=== PATIENT | male | born 1950 | race American Indian/Alaskan Native ===

== ENCOUNTER 2017-01-11 09:27 | Emergency (ER) | payer MEDICARE, OTHER ==
[2017-01-11] MEDS ORDERED: TYLENOL PO ONE (09:45)
[2017-01-11 12:11] LABS: Bacteria,Urine 1+ /HPF (Negative); Bilirubin,Urine NEG (Negative); Blood,Urine NEG (Negative); Ketones,Urine NEG (Negative); Leukocyte Esterase,Urine NEG (Negative); Mucus,Urine FEW /HPF; Nitrite,Urine NEG (Negative); Protein,Urine <15 mg/dL mg/dL (Negative); Urobilinogen,Urine < 2.0 mg/dL (<2.0)
[2017-01-11 12:14] LABS: Basophils % (Auto) 0.9 % (0.0-1.8); Eosinophils % (Auto) 2.9 % (0.0-4.3); Hematocrit 36.5 % (35.5-45.6); Hemoglobin 11.7 gm/dl (11.8-15.2); Mean Corpuscular HGB Conc 32 % (32-34); Mean Corpuscular Volume 71 fl (84-94); Platelet Count 288 K/mm3 (140-440); Red Blood Count 5.16 M/mm3 (3.65-5.03); Red Cell Distribution Width 16.3 % (13.2-15.2); White Blood Count 6.2 K/mm3 (4.5-11.0)
[2017-01-11 12:21] LABS: Mean Corpuscular Hemoglobin 23 pg (28-32)
[2017-01-11 12:49] LABS: Creatine Kinase MB 1.7 ng/mL (0.0-4.0)
[2017-01-11 12:50] LABS: Alanine Aminotransferase 8 units/L (7-56); Albumin/Globulin Ratio 1.1 %; Alkaline Phosphatase 45 units/L (35-129); Anion Gap 17 mmol/L; BUN/Creatinine Ratio 22.85; Blood Urea Nitrogen 16 mg/dL (9-20); Calcium 9.1 mg/dL (8.4-10.2); Carbon Dioxide 28 mmol/L (22-30); Chloride 99.9 mmol/L (98-107); Creatine Kinase 124 units/L (55-170); Glucose 97 mg/dL (75-100); Potassium 3.8 mmol/L (3.6-5.0); Sodium 141 mmol/L (137-145); Total Protein 7.8 g/dL (6.3-8.2)
[2017-01-11 13:01] LABS: Bilirubin,Direct < 0.2 mg/dL (0-0.2)
--- NOTE | 2017-01-11 13:11 | Emergency Department Report ---
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 He stated by 7th day (Thursday) he was feeling tired and weak. Thursday and Thursday, he states he stayed home from work. He desires a work excuse covering those days. He states that he can go back to work on Thursday. The patient sees Dr. Napoles for chronic care. He states he's been told that he is anemic by his primary care physician and has a colonoscopy scheduled for January 25. He is currently taking iron replacement. He does not report any recent signs of GI bleeding, abdominal pain or any vomiting. He denies fever or chills. -: days(s) Severity scale (0 -10): 0 Treatments Prior to Arrival: none, other (iron per PMD) - Related Data Allergies Allergy/AdvReac Type Severity Reaction Status Date / Time No Known Allergies Allergy Unverified 01/11/17 09:45 ED Review of Systems ROS: Stated complaint: TIRED/WEAK Other details as noted in HPI Constitutional: weakness. denies: chills, fever Eyes: denies: eye pain, eye discharge, vision change ENT: denies: ear pain, throat pain Respiratory: denies: cough, shortness of breath, wheezing Cardiovascular: denies: chest pain, palpitations Endocrine: no symptoms reported Gastrointestinal: denies: abdominal pain, nausea, diarrhea Genitourinary: denies: urgency, dysuria Musculoskeletal: denies: back pain, joint swelling, arthralgia Skin: denies: rash, lesions Neurological: denies: headache, weakness, paresthesias Psychiatric: denies: anxiety, depression Hematological/Lymphatic: denies: easy bleeding, easy bruising ED Past Medical Hx - Past Medical History Hx Hypertension: Yes - Surgical History Past Surgical History?: No - Social History Smoking Status: Never Smoker Substance Use Type: None ED Physical Exam - General Limitations: No Limitations General appearance: alert, in no apparent distress, obese - Head Head exam: Present: atraumatic, normocephalic - Eye Eye exam: Present: normal appearance, PERRL, EOMI. Absent: scleral icterus - ENT ENT exam: Present: normal exam, mucous membranes moist - Neck Neck exam: Present: normal inspection. Absent: tenderness, meningismus - Respiratory Respiratory exam: Present: normal lung sounds bilaterally. Absent: respiratory distress - Cardiovascular Cardiovascular Exam: Present: regular rate, normal rhythm. Absent: systolic murmur, diastolic murmur, rubs, gallop - GI/Abdominal GI/Abdominal exam: Present: soft, normal bowel sounds. Absent: distended, tenderness, guarding, rebound, rigid - Rectal Rectal exam: Present: deferred - Extremities Exam Extremities exam: Present: full ROM, other (bilateral pretibial edema). Absent : tenderness, calf tenderness - Back Exam Back exam: Present: normal inspection - Neurological Exam Neurological exam: Present: alert, oriented X3, CN II-XII intact, normal gait. Absent: motor sensory deficit - Psychiatric Psychiatric exam: Present: normal affect, normal mood - Skin Skin exam: Present: warm, dry, intact, normal color. Absent: rash ED Course Vital Signs 01/11/17 01/11/17 09:40 09:49 Temperature 97.9 F Pulse Rate 64 Respiratory 16 Rate Blood Pressure 155/95 [Right] O2 Sat by Pulse 100 Oximetry ED Medical Decision Making - Lab Data Result diagrams: 01/11/17 12:07 01/11/17 12:07 Laboratory Results - last 24 hr 01/11/17 01/11/17 01/11/17 12:07 12:07 Unknown WBC 6.2 RBC 5.16 H Hgb 11.7 L Hct 36.5 MCV 71 L MCH 23 L MCHC 32 RDW 16.3 H Plt Count 288 Lymph % (Auto) 36.6 H Labette % (Auto) 10.6 H Eos % (Auto) 2.9 Baso % (Auto) 0.9 Lymph # 2.3 Labette # 0.7 Eos # 0.2 Baso # 0.1 Seg Neutrophils % 49.0 Seg Neutrophils # 3.1 Sodium 141 Potassium 3.8 Chloride 99.9 Carbon Dioxide 28 Anion Gap 17 BUN 16 Creatinine 0.7 L Estimated GFR > 60 BUN/Creatinine Ratio 22.85 Glucose 97 Calcium 9.1 Total Bilirubin 0.50 Direct Bilirubin < 0.2 AST 15 ALT 8 Alkaline Phosphatase 45 Total Creatine Kinase 124 CK-MB (CK-2) 1.7 CK-MB (CK-2) Rel Index 1.3 Total Protein 7.8 Albumin 4.0 Albumin/Globulin Ratio 1.1 Urine Color Yellow Urine Turbidity Clear Urine pH 5.0 Ur Specific [place] 1.019 Urine Protein <15 mg/dl Urine Glucose (UA) Neg Urine Ketones Neg Urine Blood Neg Urine Nitrite Neg Urine Bilirubin Neg Urine Urobilinogen < 2.0 Ur Leukocyte Esterase Neg Urine WBC (Auto) 1.0 Urine RBC (Auto) 1.0 Urine Bacteria (Auto) 1+ Urine Mucus Few Critical care attestation.: If time is entered above; I have spent that time in minutes in the direct care of this critically ill patient, excluding procedure time. ED Disposition Clinical Impression: Generalized weakness Anemia Qualifiers: Anemia type: unspecified type Qualified Code(s): D64.9 - Anemia, unspecified Hypertension Qualifiers: Hypertension type: essential hypertension Qualified Code(s): I10 - Essential ( primary) hypertension Disposition: DC- TO HOME OR SELFCARE Is pt being admited?: No Does the pt Need Aspirin: No Condition: Stable Instructions: Anemia (ED), Weakness (ED), Hypertension (ED) Additional Instructions: Further care and evaluation by her primary care physician. Return any acute change or problem. Referrals: PRIMARY CARE, [Primary Care Provider] - 3-5 Days DYLAN NAPOLES MD [Staff Physician] - 3-5 Days Forms: Work/School Release Form(ED) Time of Disposition: 13:27
[2017-01-11 13:51] VITALS: BP 152/90
== END 2017-01-11 13:52 | disposition home or self-care (01) ==
LOC: ED 09:27
DX: R53.1 Weakness (principal); D64.9 Anemia, unspecified; I10 Essential (primary) hypertension
CPT/HCPCS: 36415; 80048; 80074; 81001; 82550; 82553; 85025; 99283

== ENCOUNTER 2017-04-01 19:14 | Emergency (ER) | payer OTHER, MEDICARE ==
[2017-04-01 22:29] VITALS: BP 149/88
--- NOTE | 2017-04-01 23:41 | Emergency Department Report ---
ED Back Pain/Injury HPI - General Chief Complaint: Extremity Injury, Lower Stated Complaint: BACK PAIN Time Seen by Provider: 04/01/17 23:25 Source: patient Limitations: No Limitations - History of Present Illness Initial Comments: 66-year-old male past medical history chronic back pain, lumbar radiculopathy, right-sided sciatica presents with complaint of acute on chronic lower back pain. Patient states he stands for prolonged periods of time at work which aggravate his long-standing lower back pain. States that the day his back pain was worse and he felt like he could not go to work. Denies any falls denies any direct trauma denies any dysuria denies any fever or chills. Patient is ambulatory without assistance. Denies any saddle paresthesias or signs of paralysis. Denies any loss of bladder or bowel control. Also states that a month ago he fell out of a chair that cracked underneath him at work. Denies any direct trauma to head denies any loss of consciousness. State he had a headache then since resolved. Denies any headache at this time. Pain currently 5/10, dull and achy in lower back. States he has not taken any pain medicines today for the pain MD Complaint: back pain Onset/Timin -: year(s) Place: home, work Radiation: right leg Severity: moderate Severity scale (0 -10): 5 Quality: aching Consistency: intermittent Improves With: immobilization, medication Worsens With: movement Context: while lifting, turning/twisting Associated Symptoms: denies other symptoms - Related Data Previous Rx's Medication Instructions Recorded Last Taken Type Cyclobenzaprine [Flexeril] 10 mg PO TID PRN #10 tablet 04/01/17 Unknown Rx Naproxen 500 mg PO BID PRN #30 tablet 04/01/17 Unknown Rx Allergies Allergy/AdvReac Type Severity Reaction Status Date / Time No Known Allergies Allergy Unverified 01/11/17 09:45 ED Review of Systems ROS: Stated complaint: BACK PAIN Other details as noted in HPI Constitutional: denies: chills, fever Eyes: denies: eye pain, eye discharge, vision change ENT: denies: ear pain, throat pain Respiratory: denies: cough, shortness of breath, wheezing Cardiovascular: denies: chest pain, palpitations Endocrine: no symptoms reported Gastrointestinal: denies: abdominal pain, nausea, diarrhea Genitourinary: denies: urgency, dysuria Musculoskeletal: back pain (12 years of intermittent chronic back pain). denies : joint swelling, arthralgia Skin: denies: rash, lesions Neurological: denies: headache, weakness, paresthesias Psychiatric: denies: anxiety, depression Hematological/Lymphatic: denies: easy bleeding, easy bruising ED Past Medical Hx - Past Medical History Previous Medical History?: Yes Hx Hypertension: Yes Additional medical history: Chronic Back pain. Obesity - Surgical History Past Surgical History?: Yes Additional Surgical History: Rt Foot Bone Spurs - Social History Smoking Status: Never Smoker Substance Use Type: None - Medications Home Medications: Home Medications Medication Instructions Recorded Confirmed Last Taken Type Cyclobenzaprine [Flexeril] 10 mg PO TID PRN #10 tablet 04/01/17 Unknown Rx Naproxen 500 mg PO BID PRN #30 tablet 04/01/17 Unknown Rx ED Physical Exam - General Limitations: No Limitations General appearance: alert, in no apparent distress - Head Head exam: Present: atraumatic, normocephalic - Eye Eye exam: Present: normal appearance, PERRL, EOMI - ENT ENT exam: Present: mucous membranes moist - Neck Neck exam: Present: normal inspection - Respiratory Respiratory exam: Present: normal lung sounds bilaterally. Absent: respiratory distress - Cardiovascular Cardiovascular Exam: Present: regular rate, normal rhythm. Absent: systolic murmur, diastolic murmur, rubs, gallop - GI/Abdominal GI/Abdominal exam: Present: soft, normal bowel sounds - Rectal Rectal exam: Present: deferred - Extremities Exam Extremities exam: Present: normal inspection - Back Exam Back exam: Present: normal inspection - Expanded Back Exam Expanded Back exam: Positive Straight Leg Raise: Right (+ at 45 degrees) - Neurological Exam Neurological exam: Present: alert, oriented X3, CN II-XII intact, normal gait - Expanded Neurological Exam Expanded Patient oriented to: Present: person, place, time Cranial nerves: EOM's Intact: Normal, Facial Sensation: Normal Cerebellar function: Finger to Nose: Normal Sensory exam: Upper Extremity Light Touch: Normal, Lower Extremity Light Touch: Normal Motor strength exam: RUE: 5, LUE: 5, RLE: 5, LLE: 5 Best Eye Response (Comer): (4) open spontaneously Best Motor Response (Comer): (6) obeys commands Best Verbal Response (Comer): (5) oriented Jim Total: 15 - Psychiatric Psychiatric exam: Present: normal affect, normal mood - Skin Skin exam: Present: warm, dry, intact, normal color. Absent: rash ED Course Vital Signs 04/01/17 22:19 Temperature 98.6 F Pulse Rate 66 Respiratory 20 Rate Blood Pressure 149/88 [Right] O2 Sat by Pulse 100 Oximetry ED Medical Decision Making - Medical Decision Making A/P: Sciatica, acute on chronic lower back pain 1-naproxen, Flexeril when necessary 2-follow up with primary care doctor 3-no clinical signs of cauda equina, no saddle paresthesias no bladder or bowel incontinence. Cranial nerves 2, 3, 4, 5, 6, 7, 8,10, 11, 12 intact on clinical exam, patient is fully lucid awake alert and oriented 3 conversant. Denies any upper or lower extremity paresthesias and has 5/5 strength in bilateral upper and lower extremities on clinical exam. 4- pt independently ambulatory without assistance upon discharge Critical care attestation.: If time is entered above; I have spent that time in minutes in the direct care of this critically ill patient, excluding procedure time. ED Disposition Clinical Impression: Musculoskeletal back pain Chronic lower back pain Qualifiers: Back pain laterality: right Sciatica presence: with sciatica Sciatica laterality: sciatica of right side Qualified Code(s): M54.41 - Lumbago with sciatica, right side; G89.29 - Other chronic pain; G89.29 - Other chronic pain Disposition: TO HOME OR SELFCARE Is pt being admited?: No Does the pt Need Aspirin: No Condition: Stable Instructions: Chronic Back Pain (ED), Back Pain (ED), Lumbar Radiculopathy (ED) Prescriptions: Cyclobenzaprine [Flexeril] 10 mg PO TID PRN #10 tablet PRN Reason: Muscle Spasm Naproxen 500 mg PO BID PRN #30 tablet PRN Reason: Pain Referrals: [facility] [Outside] - 3-5 Days [facility] [Outside] - 3-5 Days Forms: Work/School Release Form(ED) Time of Disposition: 23:40
[2017-04-01] MEDS ORDERED: MOTRIN PO ONE (23:43)
== END 2017-04-01 23:59 | disposition home or self-care (01) ==
LOC: ED 19:14
DX: M54.41 Lumbago with sciatica, right side (principal); G89.29 Other chronic pain; I10 Essential (primary) hypertension; E66.9 Obesity, unspecified
CPT/HCPCS: 99282

== ENCOUNTER 2017-07-17 18:05 | Emergency (ER) | payer OTHER, MEDICARE ==
--- NOTE | 2017-07-17 22:19 | Emergency Department Report ---
HPI - General Chief Complaint: Back Pain/Injury Time Seen by Provider: 07/17/17 21:46 - HPI HPI: he is a 66-year-old male presents to ED complaining of back pain times a year. Patient states he was at work today when he started having low back pain that radiates down the front of his thighs. Patient states the he is standing for a long period at work which aggravates the pain. Patient states today he went into work and pain got worse so he left work. Patient denies any trauma, injuries or fall. He denies fever/chills/chest pain/shortness of breath/any calf tenderness or pain/difficulty walking/loss of sensation. ED Past Medical Hx - Past Medical History Hx Hypertension: Yes Additional medical history: Chronic Back pain. Obesity - Surgical History Additional Surgical History: Rt Foot Bone Spurs - Social History Smoking Status: Never Smoker Substance Use Type: None - Medications Home Medications: Home Medications Medication Instructions Recorded Confirmed Last Taken Type Naproxen 500 mg PO BID PRN #30 tablet 04/01/17 Unknown Rx Cyclobenzaprine [Flexeril 10 MG 10 mg PO QHS PRN #20 tablet 07/17/17 Unknown Rx TAB] Diclofenac Dr [Voltaresaumya Powell] 75 mg PO BID #30 tablet 07/17/17 Unknown Rx ED Review of Systems ROS: Stated complaint: BACK PAIN Other details as noted in HPI Constitutional: denies: chills, fever Eyes: denies: eye pain, eye discharge, vision change ENT: denies: ear pain, throat pain Respiratory: denies: cough, shortness of breath, wheezing Cardiovascular: denies: chest pain, palpitations Endocrine: no symptoms reported Gastrointestinal: denies: abdominal pain, nausea, diarrhea Genitourinary: denies: urgency, dysuria Musculoskeletal: myalgia (low back). denies: back pain, joint swelling, arthralgia Skin: denies: rash, lesions, pruritus Neurological: denies: headache, weakness, numbness, paresthesias, confusion Psychiatric: denies: anxiety, depression Hematological/Lymphatic: denies: easy bleeding, easy bruising Physical Exam - Physical Exam Vital Signs: Vital Signs 07/17/17 18:10 Temperature 98 F Pulse Rate 71 Respiratory 18 Rate Blood Pressure 159/55 O2 Sat by Pulse 99 Oximetry Physical Exam: GENERAL: Alert and oriented x3, no apparent distress, Normal Gait, atraumatic. NECK: Supple. Non edematous,. No lymphadenopathy or thyromegaly. No C-spine tenderness LUNGS: Symetrical with respiration, No wheezing, no rales or crackles, CTAB. HEART: S1, S2 present, regular rate and rhythm without murmur, no rubs, no gallops. Non tender to palpation BACK: Full range of motion, no spinal tenderness, mild tenderness to palpation of lattisumus dorsi muscles. EXTREMITIES/MUSCULOSKELETAL: No cyanosis, clubbing, rash, lesions or edema. Full ROM bilaterally. UE/LE Pulses 2+ bilaterally. LE and UE 5+ strength bilaterally, straight leg raise negative bilaterally NEUROLOGIC: The patient is cooperative with no focal neurologic deficits. SKIN: Warm and dry, No lesions, No ulceration or induration present. ED Course Vital Signs 07/17/17 18:10 Temperature 98 F Pulse Rate 71 Respiratory 18 Rate Blood Pressure 159/55 O2 Sat by Pulse 99 Oximetry ED Medical Decision Making - Medical Decision Making 38-year-old female presents to ED with chronic back pain/lumbar radiculopathy ED course: Vital signs are normal patient is in no acute distress Discussed with patient follow-up with primary care physician. Discussed the patient and take medications as prescribed. Patient has no neurological deficit. Patient is alert and oriented 3 and understands all instructions given. Discussed drowsiness effect of Flexeril makes her drowsy and not to operate machinery while taking flexeril Critical care attestation.: If time is entered above; I have spent that time in minutes in the direct care of this critically ill patient, excluding procedure time. ED Disposition Clinical Impression: Lumbar radiculopathy, Low back pain radiating to both legs Disposition: DC-01 TO HOME OR SELFCARE Is pt being admited?: No Does the pt Need Aspirin: No Condition: Stable Instructions: Chronic Back Pain (ED), Lumbar Radiculopathy (ED), Trigger Point Pain (ED) Additional Instructions: Make sure to follow up with the primary care physician as discussed. Take all your medications as you've been prescribed. If you have any worsening symptoms or develop new symptoms please return to ED immediately. Prescriptions: Cyclobenzaprine [Flexeril 10 MG TAB] 10 mg PO QHS PRN #20 tablet PRN Reason: Muscle Spasm Diclofenac Dr [Voltaren ] 75 mg PO BID #30 tablet Referrals: PRIMARY CAREMD [Primary Care Provider] - 3-5 Days ADCOXJALEN MD [Staff Physician] - 3-5 Days Forms: Work/School Release Form(ED) Time of Disposition: 22:23
[2017-07-17 22:59] VITALS: BP 154/61
== END 2017-07-17 22:59 | disposition home or self-care (01) ==
LOC: ED 18:05
DX: M54.16 Radiculopathy, lumbar region (principal); G89.29 Other chronic pain; I10 Essential (primary) hypertension
CPT/HCPCS: 99282

== ENCOUNTER 2017-09-07 00:59 | Emergency (ER) | payer OTHER, MEDICARE ==
[2017-09-07 02:08] VITALS: BP 138/71
--- NOTE | 2017-09-07 03:54 | Emergency Department Report ---
- General Chief Complaint: Upper Respiratory Infection Stated Complaint: COUGH; CONGESTION Time Seen by Provider: 09/07/17 03:33 Source: patient Mode of arrival: Ambulatory Limitations: No Limitations - History of Present Illness Initial Comments: cough congestion x 4 days with ear leos and cough dry hacking, no fever no chills no n/v MD Complaint: cough, sore throat, rhinorrhea, nasal congestion Severity: moderate Severity scale (0 -10): 3 Quality: sharp Consistency: intermittent Improves With: nothing Worsens With: nothing Associated Symptoms: denies: fever, stiff neck, chest pain, nausea, vomiting, diarrhea, dysuria, rash, confusion, right sweats, weight loss Treatments Prior to Arrival: none - Related Data Previous Rx's Medication Instructions Recorded Last Taken Type Naproxen 500 mg PO BID PRN #30 tablet 04/01/17 Unknown Rx Cyclobenzaprine [Flexeril 10 MG 10 mg PO QHS PRN #20 tablet 07/17/17 Unknown Rx TAB] Diclofenac Dr [Voltaren Dr] 75 mg PO BID #30 tablet 07/17/17 Unknown Rx ALBUTEROL Inhaler [ProAir HFA 2 puff IH QID PRN #1 inhalation 09/07/17 Unknown Rx Inhaler] Acetaminophen [Acetaminophen ER 650 mg PO Q8HR PRN #30 tablet.er 09/07/17 Unknown Rx TAB] Azithromycin [Zithromax Z-KELSEY] 250 mg PO DAILY #6 tablet 09/07/17 Unknown Rx Benzonatate [Tessalon Perles] 200 mg PO Q8HR #30 capsule 09/07/17 Unknown Rx predniSONE [Deltasone] 40 mg PO DAILY #10 tablet 09/07/17 Unknown Rx Allergies Allergy/AdvReac Type Severity Reaction Status Date / Time No Known Allergies Allergy Unverified 01/11/17 09:45 ED Review of Systems ROS: Stated complaint: COUGH; CONGESTION Other details as noted in HPI Constitutional: denies: chills, fever Eyes: denies: eye pain, eye discharge, vision change ENT: congestion. denies: ear pain, throat pain Respiratory: cough. denies: shortness of breath, wheezing Cardiovascular: denies: chest pain, palpitations Endocrine: no symptoms reported Gastrointestinal: denies: abdominal pain, nausea, diarrhea Genitourinary: denies: urgency, dysuria Musculoskeletal: denies: back pain, joint swelling, arthralgia Skin: denies: rash, lesions Neurological: denies: headache, weakness, paresthesias Psychiatric: denies: anxiety, depression Hematological/Lymphatic: denies: easy bleeding, easy bruising ED Past Medical Hx - Past Medical History Hx Hypertension: Yes Additional medical history: Chronic Back pain. Obesity - Surgical History Additional Surgical History: Rt Foot Bone Spurs - Social History Smoking Status: Never Smoker Substance Use Type: None - Medications Home Medications: Home Medications Medication Instructions Recorded Confirmed Last Taken Type Naproxen 500 mg PO BID PRN #30 tablet 04/01/17 Unknown Rx Cyclobenzaprine [Flexeril 10 MG 10 mg PO QHS PRN #20 tablet 07/17/17 Unknown Rx TAB] Diclofenac Dr [Voltaren Dr] 75 mg PO BID #30 tablet 07/17/17 Unknown Rx ALBUTEROL Inhaler [ProAir HFA 2 puff IH QID PRN #1 inhalation 09/07/17 Unknown Rx Inhaler] Acetaminophen [Acetaminophen ER 650 mg PO Q8HR PRN #30 tablet.er 09/07/17 Unknown Rx TAB] Azithromycin [Zithromax Z-KELSEY] 250 mg PO DAILY #6 tablet 09/07/17 Unknown Rx Benzonatate [Tessalon Perles] 200 mg PO Q8HR #30 capsule 09/07/17 Unknown Rx predniSONE [Deltasone] 40 mg PO DAILY #10 tablet 09/07/17 Unknown Rx ED Physical Exam - General Limitations: No Limitations General appearance: alert, in no apparent distress - Head Head exam: Present: atraumatic, normocephalic, normal inspection - Eye Eye exam: Present: normal appearance, PERRL, EOMI - ENT ENT exam: Present: mucous membranes moist - Expanded ENT Exam Expanded TM/Canal exam: Erythema: Right TM, Left TM, Effusion: Right TM, Left TM, Canal Tenderness: Right TM, Left TM Mouth exam: Present: normal external inspection, tongue normal. Absent: drooling, trismus, muffled voice, tongue elevation, laceration Teeth exam: Present: normal inspection Throat exam: Positive: tonsillar erythema. Negative: tonsillomegaly, tonsillar exudate, R peritonsillar mass, L peritonsillar mass - Neck Neck exam: Present: normal inspection, full ROM. Absent: tenderness, meningismus, lymphadenopathy, thyromegaly - Respiratory Respiratory exam: Present: normal lung sounds bilaterally. Absent: respiratory distress, wheezes, stridor, chest wall tenderness - Cardiovascular Cardiovascular Exam: Present: regular rate, normal rhythm, normal heart sounds, clicks. Absent: systolic murmur, diastolic murmur, rubs, gallop - GI/Abdominal GI/Abdominal exam: Present: soft, normal bowel sounds. Absent: distended, tenderness, guarding, rebound, rigid, organomegaly, mass, bruit, pulsatile mass , hernia - Rectal Rectal exam: Present: deferred - Extremities Exam Extremities exam: Present: normal inspection, full ROM, normal capillary refill. Absent: pedal edema, joint swelling, calf tenderness - Back Exam Back exam: Present: normal inspection - Neurological Exam Neurological exam: Present: alert, oriented X3, normal gait, reflexes normal - Psychiatric Psychiatric exam: Present: normal affect, normal mood - Skin Skin exam: Present: warm, dry, intact, normal color. Absent: rash ED Course Vital Signs 09/07/17 09/07/17 00:59 02:15 Temperature 98.2 F 98.2 F Pulse Rate 83 80 Respiratory 18 18 Rate Blood Pressure 138/71 138/71 O2 Sat by Pulse 95 96 Oximetry ED Medical Decision Making - Radiology Data Radiology results: report reviewed, image reviewed cxr normal no infiltrate no opacities - Medical Decision Making pt presents with URI, AOM, no fever cough nonproductive cxr clear, there is no dizziness no lighthededness, no cp no back pain , plan: albuteral inhaler, prednisones , zpack, Tessalon pearls Critical care attestation.: If time is entered above; I have spent that time in minutes in the direct care of this critically ill patient, excluding procedure time. ED Disposition Clinical Impression: Bronchitis URI (upper respiratory infection) Qualifiers: URI type: unspecified viral URI Qualified Code(s): J06.9 - Acute upper respiratory infection, unspecified Disposition: TO HOME OR SELFCARE Is pt being admited?: No Does the pt Need Aspirin: No Condition: Good Instructions: Acute Bronchitis (ED) Prescriptions: Acetaminophen [Acetaminophen ER TAB] 650 mg PO Q8HR PRN #30 tablet.er PRN Reason: Pain ALBUTEROL Inhaler [ProAir HFA Inhaler] 2 puff IH QID PRN #1 inhalation PRN Reason: Shortness Of Breath Azithromycin [Zithromax Z-KELSEY] 250 mg PO DAILY #6 tablet Benzonatate [Tessalon Perles] 200 mg PO Q8HR #30 capsule predniSONE [Deltasone] 40 mg PO DAILY #10 tablet Referrals: [facility] [Outside] - 3-5 Days Forms: Work/School Release Form(ED) Time of Disposition: 04:02
--- NOTE | 2017-09-07 05:18 | XRay Report ---
FINAL REPORT PROCEDURE: XR CHEST ROUTINE 2V TECHNIQUE: PA and lateral chest radiographs were obtained. CPT 34455 HISTORY: cough and congestion COMPARISON: No prior studies are available for comparison. FINDINGS: Heart: Normal. Mediastinum/Vessels: Normal. Lungs/Pleural space: Lungs are clear. There are no infiltrates, effusions or pneumothoraces.. Bony thorax: No acute osseous abnormality. Other: IMPRESSION: Normal heart and lungs..
== END 2017-09-07 04:05 | disposition home or self-care (01) ==
LOC: ED 00:59
DX: J40 Bronchitis, not specified as acute or chronic (principal); J06.9 Acute upper respiratory infection, unspecified; G89.29 Other chronic pain; I10 Essential (primary) hypertension
CPT/HCPCS: 71046; 99283

== ENCOUNTER 2017-09-23 22:21 | Emergency (ER) | payer OTHER, MEDICARE ==
[2017-09-23 23:20] VITALS: BP 161/73
--- NOTE | 2017-09-24 04:03 | Emergency Department Report ---
ED Back Pain/Injury HPI - General Chief Complaint: Back Pain/Injury Stated Complaint: BACK PAIN Time Seen by Provider: 09/24/17 03:14 Source: patient Limitations: No Limitations - History of Present Illness Initial Comments: This is a 66-year-old male who presents with chronic low back pain radiates to the right lower extremity. Patient reports symptoms increase over the past 3 days. He has been seen here several different times for the same symptoms. Reports medication given here has been better than shots he received in [place] to back. Patient reports that back pain is midline and radiates down to right thigh. Denies numbness or tingling, swelling, redness, difficulty voiding, and change in bowel pattern. MD Complaint: back pain (midline low back pain radiating to right thigh) -: days(s) (2 days ago) Similar Symptoms Previously: Yes (chronic low back pain with sciatica) Place: home Radiation: right leg Severity: severe Severity scale (0 -10): 9 Quality: sharp, aching Consistency: intermittent Improves With: none Worsens With: movement, walking Context: unknown Associated Symptoms: denies other symptoms Treatments Prior to Arrival: NSAIDS - Related Data Previous Rx's Medication Instructions Recorded Last Taken Type RX: Naproxen 500 mg PO BID PRN #30 tablet 04/01/17 Unknown Rx RX: Cyclobenzaprine [Flexeril 10 10 mg PO QHS PRN #20 tablet 07/17/17 Unknown Rx MG TAB] RX: Diclofenac Dr [Edgardo Powell] 75 mg PO BID #30 tablet 07/17/17 Unknown Rx Benzonatate [Tessalon Perles] 200 mg PO Q8HR #30 capsule 09/07/17 Unknown Rx RX: ALBUTEROL Inhaler [ProAir HFA 2 puff IH QID PRN #1 inhalation 09/07/17 Unknown Rx Inhaler] RX: Acetaminophen [Acetaminophen 650 mg PO Q8HR PRN #30 tablet.er 09/07/17 Unknown Rx ER TAB] RX: Azithromycin [Zithromax Z-KELSEY] 250 mg PO DAILY #6 tablet 09/07/17 Unknown Rx RX: predniSONE [Deltasone] 40 mg PO DAILY #10 tablet 09/07/17 Unknown Rx RX: Cyclobenzaprine HCl [Flexeril 5 mg PO TID PRN #20 tab 09/24/17 Unknown Rx 5 MG TAB] RX: Ibuprofen 800 mg PO TID PRN #20 tablet 09/24/17 Unknown Rx Allergies Allergy/AdvReac Type Severity Reaction Status Date / Time No Known Allergies Allergy Unverified 01/11/17 09:45 ED Review of Systems ROS: Stated complaint: BACK PAIN Other details as noted in HPI Constitutional: denies: chills, fever Respiratory: denies: cough, shortness of breath, wheezing Cardiovascular: denies: chest pain, palpitations Gastrointestinal: denies: abdominal pain, nausea, vomiting, diarrhea Musculoskeletal: back pain (low back pain radiating to RLE). denies: joint swelling, arthralgia Skin: denies: rash, lesions Neurological: denies: headache, weakness, numbness, paresthesias Psychiatric: denies: anxiety, depression ED Past Medical Hx - Past Medical History Chronic Back pain. Obesity ED Back Pain Physical Exam - Exam General: Vital signs noted. No distress. Alert and acting appropriately. Back/Abdomen: Yes Sacroiliac Tenderness (midline on deep palpation), Yes Straight Leg Raise Pain (RLE), No Abdominal Tenderness, No Perithoracic Tenderness, No Perilumbar Tenderness, No Flank Tenderness Neuro: Yes Normal Sensation, Yes Normal DTR's, Yes Normal Gait, No Motor Weakness ED Course Vital Signs 09/23/17 23:17 Temperature 98.7 F Pulse Rate 70 Respiratory 16 Rate Blood Pressure 161/73 O2 Sat by Pulse 99 Oximetry ED Medical Decision Making - Medical Decision Making This is a 66 y.o. male that presents with chronic low back pain that is radiating to right lower extremity. Patient was examined by me. Vitals stable and patient is nontoxic appearing. Physical findings susceptible of lumbar radiculopathy. No scans or labs obtained. Start ibuprofen and cyclobenzaprine for pain. Plan discussed with patient to discharge home and treat outpatient. He agrees with ER plan. Patient instructed to follow with pain management or primary care provider for management of chronic low back pain. Patient discharged home in stable condition. Follow up with PCP and in 2-3 days. Critical care attestation.: If time is entered above; I have spent that time in minutes in the direct care of this critically ill patient, excluding procedure time. ED Disposition Clinical Impression: Lumbar radiculopathy, chronic Disposition: DC- TO HOME OR SELFCARE Is pt being admited?: No Does the pt Need Aspirin: No Condition: Stable Instructions: Lumbar Radiculopathy (ED) Additional Instructions: Rest Use ice or heat on affected area for 20 minutes and off for 2 hours. Take pain medication as needed for pain. Don't drive or operate heavy machinery while taking muscle relaxers because they may cause drowsiness. Follow up with Primary Care Provider in 2-3 days. Prescriptions: RX: Cyclobenzaprine HCl [Flexeril 5 MG TAB] 5 mg PO TID PRN #20 tab PRN Reason: Muscle Spasm RX: Ibuprofen 800 mg PO TID PRN #20 tablet PRN Reason: Pain Forms: Work/School Release Form(ED) Time of Disposition: 04:12 Print Language: MONGOLIAN
== END 2017-09-24 04:20 | disposition home or self-care (01) ==
LOC: ED 22:21
DX: M54.16 Radiculopathy, lumbar region (principal); G89.29 Other chronic pain
CPT/HCPCS: 99282

== ENCOUNTER 2019-01-23 07:13 | Emergency (ER) | payer MEDICARE, OTHER ==
--- NOTE | 2019-01-23 08:37 | Emergency Department Report ---
ED General Adult HPI - General Chief complaint: Dyspnea/Respdistress Stated complaint: SOB, URINE ORANGE IN COLOR Time Seen by Provider: 01/23/19 08:04 Source: patient Mode of arrival: Ambulatory Limitations: No Limitations - History of Present Illness Initial comments: She presents to the emergency department with a chief complaint was shortness of breath and not feeling well. Patient recently returned from a month-long trip to [facility] with the affirmation chief complaints. Patient states that he has not felt well for the last month but denies having a fever or excessive sweating. Patient does complain of having difficulty catching his breath stating that he feels like he cannot get enough air in. Patient states that he did take malaria prophylaxis but this is [place] and [place] and he is not confident in efficacy of the medication. Patient last chest pain, abdominal pain, headache. The patient also complains of a cough -: Gradual, month(s) (1) Severity scale (0 -10): 0 Consistency: constant Improves with: none Worsens with: none Associated Symptoms: denies other symptoms Treatments Prior to Arrival: none - Related Data Previous Rx's Medication Instructions Recorded Last Taken Type Naproxen 500 mg PO BID PRN #30 tablet 04/01/17 Unknown Rx Cyclobenzaprine [Flexeril 10 MG 10 mg PO QHS PRN #20 tablet 07/17/17 Unknown Rx TAB] Diclofenac Dr [Edgardo Dr] 75 mg PO BID #30 tablet 07/17/17 Unknown Rx ALBUTEROL Inhaler (OR & NICU) 2 puff IH QID PRN #1 inhalation 09/07/17 Unknown Rx [ProAir HFA Inhaler] Acetaminophen [Acetaminophen ER 650 mg PO Q8HR PRN #30 tablet.er 09/07/17 Unknown Rx TAB] Azithromycin [Zithromax Z-KELSEY] 250 mg PO DAILY #6 tablet 09/07/17 Unknown Rx Benzonatate [Tessalon Perles] 200 mg PO Q8HR #30 capsule 09/07/17 Unknown Rx predniSONE [Deltasone] 40 mg PO DAILY #10 tablet 09/07/17 Unknown Rx Cyclobenzaprine HCl [Flexeril 5 MG 5 mg PO TID PRN #20 tab 09/24/17 Unknown Rx TAB] Ibuprofen [Ibuprofen 800] 800 mg PO TID PRN #20 tablet 09/24/17 Unknown Rx ALBUTEROL Inhaler (OR & NICU) 2 puff IH Q4HR PRN #1 inhalation 01/23/19 Unknown Rx [ProAir HFA Inhaler] Codeine Phosphate/Guaifenesin 180 ml PO Q12HR PRN #180 liquid 01/23/19 Unknown Rx [Guaifenesin-Codeine Syrup] Allergies Allergy/AdvReac Type Severity Reaction Status Date / Time No Known Allergies Allergy Unverified 01/11/17 09:45 ED Review of Systems ROS: Stated complaint: SOB, URINE ORANGE IN COLOR Other details as noted in HPI Comment: All other systems reviewed and negative Constitutional: denies: chills, fever Eyes: denies: eye pain, eye discharge, vision change ENT: denies: ear pain, throat pain Respiratory: shortness of breath. denies: cough, wheezing Cardiovascular: denies: chest pain, palpitations Endocrine: no symptoms reported Gastrointestinal: denies: abdominal pain, nausea, diarrhea Genitourinary: denies: urgency, dysuria Musculoskeletal: denies: back pain, joint swelling, arthralgia Skin: denies: rash, lesions Neurological: denies: headache, weakness, paresthesias Psychiatric: denies: anxiety, depression Hematological/Lymphatic: denies: easy bleeding, easy bruising ED Past Medical Hx - Past Medical History Previous Medical History?: Yes Hx Hypertension: Yes Additional medical history: Chronic Back pain - Surgical History Past Surgical History?: Yes Additional Surgical History: Rt Foot Bone Spurs - Social History Smoking Status: Never Smoker Substance Use Type: None - Medications Home Medications: Home Medications Medication Instructions Recorded Confirmed Last Taken Type Naproxen 500 mg PO BID PRN #30 tablet 04/01/17 Unknown Rx Cyclobenzaprine [Flexeril 10 MG 10 mg PO QHS PRN #20 tablet 07/17/17 Unknown Rx TAB] Diclofenac Dr [Voltaren Dr] 75 mg PO BID #30 tablet 07/17/17 Unknown Rx ALBUTEROL Inhaler (OR & NICU) 2 puff IH QID PRN #1 inhalation 09/07/17 Unknown Rx [ProAir HFA Inhaler] Acetaminophen [Acetaminophen ER 650 mg PO Q8HR PRN #30 tablet.er 09/07/17 Unknown Rx TAB] Azithromycin [Zithromax Z-KELSEY] 250 mg PO DAILY #6 tablet 09/07/17 Unknown Rx Benzonatate [Tessalon Perles] 200 mg PO Q8HR #30 capsule 09/07/17 Unknown Rx predniSONE [Deltasone] 40 mg PO DAILY #10 tablet 09/07/17 Unknown Rx Cyclobenzaprine HCl [Flexeril 5 MG 5 mg PO TID PRN #20 tab 09/24/17 Unknown Rx TAB] Ibuprofen [Ibuprofen 800] 800 mg PO TID PRN #20 tablet 09/24/17 Unknown Rx ALBUTEROL Inhaler (OR & NICU) 2 puff IH Q4HR PRN #1 inhalation 01/23/19 Unknown Rx [ProAir HFA Inhaler] Codeine Phosphate/Guaifenesin 180 ml PO Q12HR PRN #180 liquid 01/23/19 Unknown Rx [Guaifenesin-Codeine Syrup] ED Physical Exam - General Limitations: No Limitations General appearance: alert, in no apparent distress - Head Head exam: Present: atraumatic, normocephalic - Eye Eye exam: Present: normal appearance, PERRL, EOMI - ENT ENT exam: Present: mucous membranes moist - Neck Neck exam: Present: normal inspection - Respiratory Respiratory exam: Present: normal lung sounds bilaterally. Absent: respiratory distress, wheezes - Cardiovascular Cardiovascular Exam: Present: regular rate, normal rhythm. Absent: systolic murmur, diastolic murmur, rubs, gallop - GI/Abdominal GI/Abdominal exam: Present: soft, normal bowel sounds. Absent: distended, tenderness - Rectal Rectal exam: Present: deferred - Extremities Exam Extremities exam: Present: pedal edema - Back Exam Back exam: Present: normal inspection - Neurological Exam Neurological exam: Present: alert, oriented X3, CN II-XII intact. Absent: motor sensory deficit - Psychiatric Psychiatric exam: Present: normal affect, normal mood - Skin Skin exam: Present: warm, dry, intact, normal color. Absent: rash ED Course Vital Signs 01/23/19 01/23/19 01/23/19 07:30 08:09 08:16 Temperature 98.7 F Pulse Rate 73 66 Respiratory 16 15 Rate Blood Pressure 155/87 146/79 O2 Sat by Pulse 98 98 97 Oximetry 01/23/19 01/23/19 01/23/19 08:26 08:30 09:00 Temperature Pulse Rate 77 73 62 Respiratory 14 15 Rate Blood Pressure 146/79 146/79 O2 Sat by Pulse 97 95 Oximetry 01/23/19 01/23/19 01/23/19 09:52 10:00 10:30 Temperature Pulse Rate 64 61 59 L Respiratory 14 13 16 Rate Blood Pressure 126/73 126/73 109/74 O2 Sat by Pulse 96 97 97 Oximetry ED Medical Decision Making - Lab Data Result diagrams: 01/23/19 08:40 01/23/19 08:40 Lab Results 01/23/19 01/23/19 01/23/19 Range/Units 08:40 08:40 08:40 WBC 8.2 (4.5-11.0) K/mm3 RBC 4.76 (3.65-5.03) M/mm3 Hgb 10.8 L (11.8-15.2) gm/dl Hct 34.0 L (35.5-45.6) % MCV 71 L (84-94) fl MCH 23 L (28-32) pg MCHC 32 (32-34) % RDW 15.5 H (13.2-15.2) % Plt Count 333 (140-440) K/mm3 Add Manual Diff Complete Seg Neuts % (Manual) 62 (40.0-70.0) % Lymphocytes % (Manual) 32 (13.4-35.0) % Monocytes % (Manual) 12 H (0.0-7.3) % Eosinophils % (Manual) 2 (0.0-4.3) % Basophils % (Manual) 2 H (0.0-1.8) % Nucleated RBC % Not Reportable Seg Neutrophils # Man 5.0 (1.8-7.7) K/mm3 Lymphocytes # (Manual) 2.6 (1.2-5.4) K/mm3 Monocytes # (Manual) 0.9 H (0.0-0.8) K/mm3 Eosinophils # (Manual) 0.1 (0.0-0.4) K/mm3 Basophils # (Manual) 0.1 (0.0-0.1) K/mm3 WBC Morphology Not Reportable Hypersegmented Neuts Not Reportable Hyposegmented Neuts Not Reportable Hypogranular Neuts Not Reportable Smudge Cells Not Reportable Toxic Granulation Not Reportable Toxic Vacuolation Not Reportable Dohle Bodies Not Reportable Pelger-Huet Anomaly Not Reportable Cristina Rods Not Reportable Platelet Estimate Not Reportable Clumped Platelets Not Reportable Plt Clumps, EDTA Not Reportable Large Platelets Not Reportable Giant Platelets Not Reportable Platelet Satelliting Not Reportable Plt Morphology Comment Not Reportable RBC Morphology Not Reportable Dimorphic RBCs Not Reportable Polychromasia Not Reportable Hypochromasia 1+ Poikilocytosis Not Reportable Anisocytosis 1+ Microcytosis Not Reportable Macrocytosis Not Reportable Spherocytes Not Reportable Pappenheimer Bodies Not Reportable Sickle Cells Not Reportable Target Cells Few Tear Drop Cells Not Reportable Ovalocytes Not Reportable Helmet Cells Not Reportable Celis-Lannon Bodies Not Reportable [place] Rings Not Reportable Carnation Cells Not Reportable Bite Cells Not Reportable Crenated Cell Not Reportable Elliptocytes Not Reportable Acanthocytes (Spur) Not Reportable Rouleaux Not Reportable Hemoglobin C Crystals Not Reportable Schistocytes Not Reportable Malaria parasites Not Reportable Malcolm Bodies Not Reportable Hem Pathologist Commnt No PT 14.4 (12.2-14.9) Sec. INR 1.15 H (0.87-1.13) APTT 28.1 (24.2-36.6) Sec. Sodium 139 (137-145) mmol/L Potassium 3.5 L (3.6-5.0) mmol/L Chloride 98.0 (98-107) mmol/L Carbon Dioxide 30 (22-30) mmol/L Anion Gap 15 mmol/L BUN 13 (9-20) mg/dL Creatinine 0.9 (0.8-1.5) mg/dL Estimated GFR > 60 ml/min BUN/Creatinine Ratio 14 % Glucose 127 H (75-100) mg/dL Calcium 9.0 (8.4-10.2) mg/dL Total Bilirubin 0.50 (0.1-1.2) mg/dL AST 16 (5-40) units/L ALT 8 (7-56) units/L Alkaline Phosphatase 57 (35-129) units/L Troponin T < 0.010 (0.00-0.029) ng/mL NT-Pro-B Natriuret Pep 166.9 (0-900) pg/mL Total Protein 8.0 (6.3-8.2) g/dL Albumin 3.3 L (3.9-5) g/dL Albumin/Globulin Ratio 0.7 % Urine Color (Yellow) Urine Turbidity (Clear) Urine pH (5.0-7.0) Ur Specific [place] (1.003-1.030) Urine Protein (Negative) mg/dL Urine Glucose (UA) (Negative) mg/dL Urine Ketones (Negative) mg/dL Urine Blood (Negative) Urine Nitrite (Negative) Urine Bilirubin (Negative) Urine Urobilinogen (<2.0) mg/dL Ur Leukocyte Esterase (Negative) Urine WBC (Auto) (0.0-6.0) /HPF Urine RBC (Auto) (0.0-6.0) /HPF U Epithel Cells (Auto) (0-13.0) /HPF Urine Mucus /HPF 01/23/19 01/23/19 Range/Units 09:10 10:12 WBC (4.5-11.0) K/mm3 RBC (3.65-5.03) M/mm3 Hgb (11.8-15.2) gm/dl Hct (35.5-45.6) % MCV (84-94) fl MCH (28-32) pg MCHC (32-34) % RDW (13.2-15.2) % Plt Count (140-440) K/mm3 Add Manual Diff Seg Neuts % (Manual) (40.0-70.0) % Lymphocytes % (Manual) (13.4-35.0) % Monocytes % (Manual) (0.0-7.3) % Eosinophils % (Manual) (0.0-4.3) % Basophils % (Manual) (0.0-1.8) % Nucleated RBC % Seg Neutrophils # Man (1.8-7.7) K/mm3 Lymphocytes # (Manual) (1.2-5.4) K/mm3 Monocytes # (Manual) (0.0-0.8) K/mm3 Eosinophils # (Manual) (0.0-0.4) K/mm3 Basophils # (Manual) (0.0-0.1) K/mm3 WBC Morphology Hypersegmented Neuts Hyposegmented Neuts Hypogranular Neuts Smudge Cells Toxic Granulation Toxic Vacuolation Dohle Bodies Pelger-Huet Anomaly Cristina Rods Platelet Estimate Clumped Platelets Plt Clumps, EDTA Large Platelets Giant Platelets Platelet Satelliting Plt Morphology Comment RBC Morphology Dimorphic RBCs Polychromasia Hypochromasia Poikilocytosis Anisocytosis Microcytosis Macrocytosis Spherocytes Pappenheimer Bodies Sickle Cells Target Cells Tear Drop Cells Ovalocytes Helmet Cells Celis-Lannon Bodies [place] Carnation Cells Bite Cells Crenated Cell Elliptocytes Acanthocytes (Spur) Rouleaux Hemoglobin C Crystals Schistocytes Malaria parasites Malcolm Bodies Hem Pathologist Commnt PT (12.2-14.9) Sec. INR (0.87-1.13) APTT (24.2-36.6) Sec. Sodium (137-145) mmol/L Potassium (3.6-5.0) mmol/L Chloride (98-107) mmol/L Carbon Dioxide (22-30) mmol/L Anion Gap mmol/L BUN (9-20) mg/dL Creatinine (0.8-1.5) mg/dL Estimated GFR ml/min BUN/Creatinine Ratio % Glucose (75-100) mg/dL Calcium (8.4-10.2) mg/dL Total Bilirubin (0.1-1.2) mg/dL AST (5-40) units/L ALT (7-56) units/L Alkaline Phosphatase (35-129) units/L Troponin T < 0.010 (0.00-0.029) ng/mL NT-Pro-B Natriuret Pep (0-900) pg/mL Total Protein (6.3-8.2) g/dL Albumin (3.9-5) g/dL Albumin/Globulin Ratio % Urine Color Yellow (Yellow) Urine Turbidity Clear (Clear) Urine pH 7.0 (5.0-7.0) Ur Specific [place] 1.013 (1.003-1.030) Urine Protein <15 mg/dl (Negative) mg/dL Urine Glucose (UA) Neg (Negative) mg/dL Urine Ketones Neg (Negative) mg/dL Urine Blood Neg (Negative) Urine Nitrite Neg (Negative) Urine Bilirubin Neg (Negative) Urine Urobilinogen < 2.0 (<2.0) mg/dL Ur Leukocyte Esterase Neg (Negative) Urine WBC (Auto) < 1.0 (0.0-6.0) /HPF Urine RBC (Auto) 1.0 (0.0-6.0) /HPF U Epithel Cells (Auto) < 1.0 (0-13.0) /HPF Urine Mucus Few /HPF - EKG Data -: EKG Interpreted by Me EKG shows normal: sinus rhythm Rate: normal - Radiology Data Radiology results: report reviewed - Medical Decision Making results discussed with patient Critical care attestation.: If time is entered above; I have spent that time in minutes in the direct care of this critically ill patient, excluding procedure time. ED Disposition Clinical Impression: Fatigue, Cough Disposition: DC-01 TO HOME OR SELFCARE Is pt being admited?: No Does the pt Need Aspirin: No Condition: Stable Instructions: Fatigue (ED), Cold Symptoms (ED) Additional Instructions: return if worse Referrals: [facility] [Referring] - 3-5 Days [facility] [Provider Group] - 3-5 Days [facility] [Provider Group] - 3-5 Days NAVEEN TAPIA MD [Staff Physician] - 3-5 Days Time of Disposition: 11:07
[2019-01-23 09:03] LABS: Hemoglobin 10.8 gm/dl (11.8-15.2); Mean Corpuscular HGB Conc 32 % (32-34); Mean Corpuscular Volume 71 fl (84-94); Platelet Count 333 K/mm3 (140-440); Red Blood Count 4.76 M/mm3 (3.65-5.03); Red Cell Distribution Width 15.5 % (13.2-15.2)
--- NOTE | 2019-01-23 09:08 | XRay Report ---
CHEST 1 VIEW, 01/23/2019 8:38 AM INDICATION: Shortness of breath COMPARISON: Chest radiograph, 09/07/2017 FINDINGS: SUPPORT DEVICES: None HEART: The cardiac silhouette is normal in size. LUNGS/PLEURA: There is no focal airspace disease or significant pleural effusion. ADDITIONAL FINDINGS: No additional acute findings. IMPRESSION: 1. No evidence of acute cardiopulmonary process. Signer Name: Meghan Perez MD Signed: 01/23/2019 9:03 AM Workstation Name: [id number]
[2019-01-23 09:13] LABS: INR 1.15 (0.87-1.13)
[2019-01-23 09:14] LABS: Alanine Aminotransferase 8 units/L (7-56); Albumin 3.3 g/dL (3.9-5); BUN/Creatinine Ratio 14; Blood Urea Nitrogen 13 mg/dL (9-20); Hemolysis Index 20; Partial Thromboplastin Time 28.1 Sec. (24.2-36.6)
[2019-01-23 09:28] LABS: Bilirubin,Urine NEG (Negative); Blood,Urine NEG (Negative); Color,Urine Yellow (Yellow); Mucus,Urine FEW /HPF; Protein,Urine <15 mg/dL mg/dL (Negative); Urobilinogen,Urine < 2.0 mg/dL (<2.0); WBC,Urine < 1.0 /HPF (0.0-6.0)
--- NOTE | 2019-01-23 10:05 | Cat Scan Report ---
CTA CHEST WITH IV CONTRAST, 01/23/2019 INDICATION: Shortness of breath. TECHNIQUE: Axial CT images were obtained through the chest after injection of IV contrast. Coronal oblique 2-D reconstruction images were produced. 3 plane MIP reconstruction images were produced at an [employer] workstation. All CTs at this facility utilize dose reduction techniques including automated expos ure control, iterative reconstruction and weight based dosing when appropriate to reduce patient radi ation dose to as low as reasonable achievable. COMPARISON: Chest radiograph, 01/23/2019 FINDINGS: No filling defects are visualized within the central or segmental pulmonary arteries to suggest pulmo nary embolism. The heart is normal in size. Evaluation of the lung parenchyma demonstrates no evidenc e of focal airspace disease or significant pleural effusion. Limited imaging of the upper abdomen shows no evidence of acute abnormality. Evaluation of bony struc tures demonstrates moderate degenerative change throughout the thoracic spine. Evaluation of soft tis ozzie structures demonstrate a focal density in the left retroareolar region measuring approximately 5 cm which appears asymmetric. There is no axillary adenopathy. IMPRESSION: 1. No evidence of pulmonary embolism or acute parenchymal process. 2. Asymmetric density in the left retroareolar region. While this may represent a benign incidental f inding, a bilateral diagnostic mammogram is suggested in this male patient when his clinical conditio n permits. Signer Name: Meghan Perez MD Signed: 01/23/2019 10:00 AM Workstation Name: [id number]
[2019-01-23 10:19] LABS: Basophils % (Manual) 2 % (0.0-1.8); Eosinophils % (Manual) 2 % (0.0-4.3); Monocytes % (Manual) 12 % (0.0-7.3)
[2019-01-23 10:20] LABS: Anisocytosis 1+; Hypochromasia 1+; Target Cells Few
[2019-01-23 10:44] VITALS: BP 109/74
== END 2019-01-23 11:15 | disposition home or self-care (01) ==
LOC: ED 07:13
DX: R06.02 Shortness of breath (principal); R05 Cough; R53.83 Other fatigue; I10 Essential (primary) hypertension; G89.29 Other chronic pain; Z98.890 Other specified postprocedural states; Z79.899 Other long term (current) drug therapy
CPT/HCPCS: 36415; 71045; 71275; 80053; 81001; 83880; 84484; 85007; 85025; 85610; 85730; 87207; 93005; 93010; 99284; Q9967